=== PATIENT | male | born 1990 | race Caucasian/White ===

== ENCOUNTER 2016-06-24 22:17 | Emergency (ER) | payer OTHER ==
[~2016-06-24] VITALS: Ht 175.3 cm; Wt 76.3 kg
[~2016-06-24 22:17] MED LIST: BENADRYL25 MG PO; PEPCID20 MG PO; PREDNISONE20 MG PO
[2016-06-24 23:44] VITALS: BP 140/72
== END 2016-06-24 23:45 | disposition home or self-care (01) ==
LOC: EME 22:17 → RME 22:17
DX: Z04.1 Encounter for examination and observation following transport accident (principal)
CPT/HCPCS: 99281; 99283